=== PATIENT | male | born 1950 | race African-American/Black ===

== ENCOUNTER 2017-10-04 16:00 | Emergency (ER) | payer MEDICARE, MEDICAID ==
[~2017-10-04] VITALS: Ht 165.1 cm; Wt 62.0 kg
[2017-10-04 17:12] LABS: HEMATOCRIT. 45.1 % (42.0-52.0); HEMOGLOBIN. 15.5 g/dL (14.0-18.0); MEAN CORPUSCULAR HEMOGLOBIN 31.7 pg (28.0-32.0); MEAN CORPUSCULAR VOLUME 92.2 fL (80.0-94.0); PLATELET 199 x1000/uL (130-400); RED BLOOD CELL COUNT 4.89 mill/uL (4.7-6.1); RED CELL DISTRIBUTION WIDTH 13.2 % (11.6-14.6)
[2017-10-04 17:14] LABS: CHLORIDE 96 mEq/L (98-107)
[2017-10-04 17:16] LABS: INR 1.1; PROTHROMBIN TIME 11.3 sec (9.4-11.6)
[2017-10-04 17:23] LABS: ETHANOL BLOOD < 10 mg/dL
[2017-10-04 17:34] LABS: PLATELET ESTIMATE NORMAL
[2017-10-04] MEDS ORDERED: ONDANSETRON HCL 4MG/2ML VIAL IM ONE (20:30)
[2017-10-04 23:22] VITALS: BP 140/83
== END 2017-10-04 23:26 | disposition home or self-care (01) ==
LOC: ER 16:00
DX: G93.40 Encephalopathy, unspecified (principal); R11.0 Nausea; I10 Essential (primary) hypertension; Z86.73 Personal history of transient ischemic attack (TIA), and cerebral infarction without residual deficits; F17.210 Nicotine dependence, cigarettes, uncomplicated; F19.10 Other psychoactive substance abuse, uncomplicated
CPT/HCPCS: 36415; 70450; 80053; 85025; 85610; 96372; 99285; G0482; J2405